=== PATIENT | male | born 1935 | race Hispanic/Latino ===

== ENCOUNTER 2019-04-14 08:02 | Emergency (ER) | payer MEDICARE, MEDICAID | END 2019-04-14 09:02 | disposition home or self-care (01) | LOC: NAV ERS 08:02 | DX: S61.213A Laceration without foreign body of left middle finger without damage to nail, initial encounter (principal); E11.9 Type 2 diabetes mellitus without complications; E78.5 Hyperlipidemia, unspecified; I10 Essential (primary) hypertension; Z79.899 Other long term (current) drug therapy; Z79.84 Long term (current) use of oral hypoglycemic drugs; W26.9XXA Contact with unspecified sharp object(s), initial encounter | CPT/HCPCS: 99283 ==

== ENCOUNTER 2020-05-01 08:39 | Outpatient (CLI) | payer MEDICARE, OTHER ==
--- NOTE | 2020-05-01 09:13 | RAD ---
LUMBAR SPINE 4 VIEWS: HISTORY: Pain. FINDINGS: Lumbar vertebrae maintain height and alignment. Disk spaces are preserved. Slight anterolisthesis o f L5-S1. Prominent facet hypertrophy at L5-S1 and moderate facet hypertrophy at the other levels. P rominent anterior osteophytes throughout the lumbar vertebrae. Aortic calcification. IMPRESSION: There are moderate degenerative changes as described. A slight anterolisthesis at L5-S1 measured at 2-3 mm. POS: AH
== END 2020-05-01 08:40 | disposition home or self-care (01) ==
LOC: NAV RAD 08:39
PROVIDERS: ATTEND Family Medicine
DX: M54.5 Low back pain (principal); G89.29 Other chronic pain; M47.816 Spondylosis without myelopathy or radiculopathy, lumbar region; M47.817 Spondylosis without myelopathy or radiculopathy, lumbosacral region; M43.17 Spondylolisthesis, lumbosacral region
CPT/HCPCS: 72100

== ENCOUNTER 2022-02-05 12:23 | Emergency (ER) | payer MEDICARE, OTHER ==
[2022-02-05 13:15] LABS: #Basophils 0.1 thou/uL (0.0-0.2); #Eosinphils 0.4 thou/uL (0.0-0.7); #Lymphocytes 1.8 thou/uL (1.20-3.40); #Monocytes 0.5 thou/uL (0.11-0.59); %Basophils 1.9 % (0.0-1.0); %Eosinophils 8.2 % (0.0-10.0); %Lymphocytes 36.9 % (21.0-51.0); %Monocytes 10.9 % (0.0-10.0); %Neutrophils 42.1 % (42.0-75.0); Hemoglobin 11.2 g/dL (14.0-18.0); Mean Corpuscular Hemoglobin 28.4 pg (27.0-31.0); Mean Corpuscular Volume 91.6 fL (78.0-98.0); Mean Platelet Volume 8.7 fL (7.4-10.4); Platelet Count 147 thou/uL (130-400); RBC Distribution Width 13.8 % (11.5-14.5); Red Blood Cell (RBC) Count 3.94 mill/uL (4.70-6.10); White Blood Cell (WBC) Count 4.8 thou/uL (4.8-10.8)
[2022-02-05 13:22] LABS: ALT (SGPT) 21 U/L (8-55); AST (SGOT) 28 U/L (5-34); Albumin 4.3 g/dL (3.4-4.8); Alkaline Phosphatase 73 U/L (40-110); Anion Gap 14 mmol/L (10-20); BUN (Urea Nitrogen) 20 mg/dL (8.4-25.7); Bilirubin, Total 0.6 mg/dL (0.2-1.2); Calc. Creatinine Clearance 0 mL/min (70-130); Calcium 9.3 mg/dL (7.8-10.44); Carbon Dioxide 23 mmol/L (23-31); Chloride 105 mmol/L (98-107); Globulin 2.8 g/dL (2.4-3.5); Glucose 117 mg/dL (83-110); Potassium 4.2 mmol/L (3.5-5.1); Protein, Total 7.1 g/dL (5.8-8.1); Sodium 138 mmol/L (136-145)
[2022-02-05] MEDS ORDERED: Boostrix 0.5 ML (Tdap) VIAL ONE (14:23)
[2022-02-05] MEDS ORDERED: Bacitracin 1 PK ONE (14:57)
== END 2022-02-05 15:00 | disposition home or self-care (01) ==
LOC: NAV ERS 12:23
DX: S00.83XA Contusion of other part of head, initial encounter (principal); S60.221A Contusion of right hand, initial encounter; E11.9 Type 2 diabetes mellitus without complications; I10 Essential (primary) hypertension; E78.5 Hyperlipidemia, unspecified; Z79.84 Long term (current) use of oral hypoglycemic drugs; Z79.899 Other long term (current) drug therapy; Z23 Encounter for immunization; W19.XXXA Unspecified fall, initial encounter
CPT/HCPCS: 36416; 70450; 71045; 72125; 80053; 84484; 85025; 90471; 90715; 93005; 94760

== ENCOUNTER 2022-04-24 10:33 | Outpatient (CLI) | payer OTHER | END 2022-04-24 10:34 | disposition home or self-care (01) | LOC: NAV RAD 10:33 | PROVIDERS: ATTEND Family Medicine | DX: M54.2 Cervicalgia (principal); M47.812 Spondylosis without myelopathy or radiculopathy, cervical region | CPT/HCPCS: 72040 ==